=== PATIENT | female | born 1955 | race Caucasian/White ===

== ENCOUNTER → 2016-02-27 | Outpatient (CLI) | payer OTHER ==
[2016-02-27 10:55] LABS: SODIUM 141 meq/L (135-145)
[2016-02-27 10:56] LABS: ASPARTATE AMINO TRANSFERASE 29 IU/L (8-39); BILIRUBIN,TOTAL 0.8 mg/dL (0.3-1.2); BLOOD UREA NITROGEN 8 mg/dL (7-22); BUN/CREATININE RATIO 11.42 (6-20); CALCIUM 9.1 mg/dL (8.7-10.7); CHLORIDE 102 meq/L (98-112); CREATININE 0.7 mg/dL (0.50-1.20); EST GLOMERULAR FILTRATION > 60 (>60 ml/min/1.73m(2)); GLUCOSE 95 mg/dL (78-110); POTASSIUM 3.8 meq/L (3.8-5.2); TOTAL PROTEIN 6.9 g/dL (6.1-8.0)
[2016-02-27 10:57] LABS: HDL CHOLESTEROL 89 mg/dL (40-150); TRIGLYCERIDES 94 mg/dL (44-200)
[2016-02-27 23:27] LABS: HEMOGLOBIN A1C 6.75 % (4.2-6.0); MEAN BLOOD GLUCOSE (CALC) 138.775 mg/dL
== END ==
LOC: LAB 10:11
PROVIDERS: ATTEND Nurse Practitioner Family
DX: E11.9 Type 2 diabetes mellitus without complications (principal); R03.0 Elevated blood-pressure reading, without diagnosis of hypertension
CPT/HCPCS: 36415; 80053; 80061; 83036

== ENCOUNTER → 2016-05-21 | Outpatient (CLI) | payer OTHER ==
[2016-05-21 10:12] LABS: BLOOD UREA NITROGEN 12 mg/dL (7-22); CALCIUM 9.6 mg/dL (8.7-10.7); EST GLOMERULAR FILTRATION > 60 (>60 ml/min/1.73m(2)); SERUM ALBUMIN 4.2 g/dL (3.5-4.8)
[2016-05-21 10:15] LABS: HEMOGLOBIN A1C 6.09 % (4.2-6.0)
== END ==
LOC: LAB 09:23
PROVIDERS: ATTEND Nurse Practitioner Family
DX: E11.9 Type 2 diabetes mellitus without complications (principal); E78.5 Hyperlipidemia, unspecified; R03.0 Elevated blood-pressure reading, without diagnosis of hypertension
CPT/HCPCS: 36415; 80053; 83036

== ENCOUNTER → 2016-05-30 | Outpatient (CLI) | payer OTHER ==
--- NOTE | 2016-05-30 18:26 | DI ---
AP VIEW OF THE RIGHT KNEE, 05/30/2016 12:19 PM: Clinical History: Right knee pain. Previous Exam: None at this facility. An AP standing views and a lateral film are submitted. The patient was charged only for the AP projec tion. There is no acute osseous or joint abnormality. A small suprapatellar effusion is present. There is d egenerative joint space narrowing of the medial and patellofemoral compartments. There is a bony spur arising from the distal and anterior aspect of the right femur. 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
== END ==
LOC: MOB RAD 12:01
PROVIDERS: ATTEND Nurse Practitioner Family
DX: M25.561 Pain in right knee (principal); M25.461 Effusion, right knee; M17.11 Unilateral primary osteoarthritis, right knee
CPT/HCPCS: 73565